=== PATIENT | female | born 1975 | race Caucasian/White ===

== ENCOUNTER 2025-05-09 17:14 | Emergency (ER) | payer OTHER, SELFPAY ==
--- NOTE | ~2025-05-09 | CT_ITS ---
History: Vertigo PROCEDURE: CT head without contrast. COMPARISON: None TECHNIQUE: Axial imaging of the head performed from the skull base to the vertex without IV contrast. Sagittal a nd coronal reformations obtained. DLP: 681 mGy-cm FINDINGS: The ventricles are normal in size, shape and position. There is no mass, mass effect or midline shift. There is no abnormal extra-axial fluid collection or intracranial hemorrhage. Visualized paranasal sinuses are clear. The mastoid air cells are well aerated. No acute displaced fractures within the overlying cranium. Impression: No acute intracranial hemorrhage or suspicious mass effect. Reviewed, dictated and finalized at location A. Impression: No acute intracranial hemorrhage or suspicious mass effect.
[2025-05-09 17:19] VITALS: BP 118/64; PULSE 93; RESP 14; TEMP 36.4; O2SAT 100
--- OUTSIDE RECORDS SUMMARY | 2025-05-09 17:21 | XMS_ITS | Clinical Summary ---
Author Organization [facility] Address [address] [place] [address] Care Team Providers Care Reproductive Endocrinologist Name Role Phone Mamie Winchester PA-C Primary Care Provider [phone] Source Comments [facility],non-owned Affiliates and Associated Physician Practices is amultiple site organization consisting of ambulatory clinics and hospital sitesin [place], [place], [place] and [place]. This disclosure is being madepursuant to the Care Everywhere program and may not contain all information available regarding this patient. Last updated 18.[facility] Allergies No known active allergies Medications * Be aware that medications may not be up to date on this document. Alwaysverify current medications with the patient. vitamin D, ergocalciferol, (DRISDOL) 18788 UNITS capsule Take 1 Cap by mouth every 7 days 4 Cap 2 04/02/2016 Active Active Problems Problem Noted Date Diagnosed Date Right hand pain 12/01/2020 Vitamin D deficiency 04/02/2016 Thyroid nodule-hx of 04/02/2016 Crohn's disease 05/03/2013 Immunizations Immunization Administration Dates Next Due INFLUENZA VACCINE 08/24/2015 INFLUENZA VACCINE, QUADR. (F LUZONE; FLULAVAL; FLUARIX; AFLURIA QUADRIVALENT; 6MO+), 0.5 ML (IIV4) 12/27/2016 Family History Medical History Relation Name Comments Cancer - Other Father Prostate Heart Disease Father Cancer - Other Maternal Grandmother Stroke Paternal Grandfather Relation Name Status Comments Father Maternal Grandmother Paternal Grandfather Social History Tobacco Use Types Packs/Day Years Used Date Smoking Tobacco: Every Day Cigarettes 0.5 16 Smokeless Tobacco: Never Tobacco Cessation:Ready to Q uit: No; Counseling Given: No Alcohol Use Standard Drinks/Week Comments Yes 0 (1 standard drink = 0.6 oz pur e alcohol) occasional Comments No Sex and Gender Information Value Date Recorded Sex Assigned at Not on file Legal Sex Female 6:52 AM PANTOGRAPH ENGRAVER Gender Identity Not on file Sexual Orientation Not on file Last Filed Vital Signs Vital Sign Reading Time Taken Comments Blood Pressure 117/57 11/23/2020 10:57 AM PANTOGRAPH ENGRAVER Pulse 62 11/23/2020 10:57 AM PANTOGRAPH ENGRAVER Temperature 36.9 C (98.5 F) 11/23/2020 9:07 AM PANTOGRAPH ENGRAVER Respiratory Rate 16 11/23/2020 10:57 AM PANTOGRAPH ENGRAVER Oxygen Saturation 99% 11/23/2020 10:57 AM PANTOGRAPH ENGRAVER Inhaled Oxygen Concentration - - Weight 65.8 kg (145 lb) 11/23/2020 9:07 AM PANTOGRAPH ENGRAVER Height 172.7 cm (5' 8) 11/23/2020 9:07 AM PANTOGRAPH ENGRAVER Body Mass Index 22.05 11/23/2020 9:07 AM PANTOGRAPH ENGRAVER Plan of Treatment Health Maintenance Due Date Last Done Comments COLOGUARD (AGES 45-75) - COL ON CA SCREENING 1975 COLON MONITORING 1975 COLONOSCOPY - COLON CA SCREENING 1975 CT COLONOGRAPHY - COLON CA SCREENING 1975 Colorectal Cancer Screening 1975 FIT - COLON CA SCREENING 1975 FLEX SIG - COLON CA SCREENING 1975 LIPID TESTING 1975 MAMMOGRAM 1975 HIV SCREENING 1990 HEPATITIS C SCREENING 04/12/1993 DTAP/TDAP/TD VACCINES (1 - Tdap) 1994 HEPATITIS B VACCINE (1 of 3 - 19+ 3-dose series) 1994 COVID-19 VACCINE ( - 2023-2 5 season) 2024 DEPRESSION SCREENING 11/24/2024 PNEUMOCOCCAL VACCINE 50+ (1 of 1 - PCV) 2025 ZOSTER VACCINE (1 of 2) 2025 INFLUENZA VACCINE (Season Ended) 2025 12/27/2016, 08/24/2015 HIB VACCINE Aged Out No longer eligi ble based on patient's age to complete this topic HPV VACCINE Aged Out No longer eligi ble based on patient's age to complete this topic MENINGOCOCCAL (Group B) VACCINE SHARED DECISION-MAKING Aged Out No longer eligible based on patient's age to complete this topic MENINGOCOCCAL GROUPS A/C/Y/W VACCINE Aged Out No longer eligible b ased on patient's age to complete this topic [place] [address] THIRD [employer]AT LIABILITY TP THIRD [employer] LIABILITY Member Subscriber Plan / Payer (Ef fective 2020-Present) Name:Manny Adams Relation to Subscriber:Self Name:Manny Adams Payer ID:Not on file Group ID:Not on file Type:Third Green Party Liability [id number] Address: [address] [place] [id number] MEDICAID - [place] Care Teams Reproductive Endocrinologist Relationship Specialty Start Date End Date Mamie Winchester PA-C [address] [place] [address] PCP - General Physician 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
[2025-05-09 18:35] VITALS: BP 117/65; PULSE 87; RESP 18; O2SAT 100
[2025-05-09 19:12] VITALS: BP 132/88; PULSE 93; RESP 18; O2SAT 99
--- OUTSIDE RECORDS SUMMARY | 2025-05-09 19:25 | XMS_ITS | Clinical Summary ---
Author Organization [facility] Address [address] [place] [address] Care Team Providers Care Rescue Instructor Name Role Phone Mamie Winchester PA-C Primary Care Provider [phone] Source Comments [facility],non-owned Affiliates and Associated Physician Practices is amultiple site organization consisting of ambulatory clinics and hospital sitesin [place], [place], [place] and [place]. This disclosure is being madepursuant to the Care Everywhere program and may not contain all information available regarding this patient. Last updated 18.[facility] Allergies No known active allergies Medications * Be aware that medications may not be up to date on this document. Alwaysverify current medications with the patient. vitamin D, ergocalciferol, (DRISDOL) 65668 UNITS capsule Take 1 Cap by mouth [...] on file Legal Sex Female 6:52 AM CERTIFIED ORTHOPTIST Gender Identity Not on file Sexual Orientation Not on file Last Filed Vital Signs Vital Sign Reading Time Taken Comments Blood Pressure 117/57 11/23/2020 10:57 AM CERTIFIED ORTHOPTIST Pulse 62 11/23/2020 10:57 AM CERTIFIED ORTHOPTIST Temperature 36.9 C (98.5 F) 11/23/2020 9:07 AM CERTIFIED ORTHOPTIST Respiratory Rate 16 11/23/2020 10:57 AM CERTIFIED ORTHOPTIST Oxygen Saturation 99% 11/23/2020 10:57 AM CERTIFIED ORTHOPTIST Inhaled Oxygen Concentration - - Weight 65.8 kg (145 lb) 11/23/2020 9:07 AM CERTIFIED ORTHOPTIST Height 172.7 cm (5' 8) 11/23/2020 9:07 AM CERTIFIED ORTHOPTIST Body Mass Index 22.05 11/23/2020 9:07 AM CERTIFIED ORTHOPTIST Plan of Treatment Health Maintenance Due Date [...] patient's age to complete this topic Insurance [address] [address] [address] THIRD [employer] LIABILITY TP TH[employer] LIABILITY Member Subscriber Plan / Payer (Ef fective 2020-Present) Name:Manny Adams Relation to Subscriber:Self Name:Manny Adams Payer ID:Not on file Group ID:Not on file Type:Third Green Party Liability [id number] Address: [address] [place] [id number] MEDICAID - [place] Care Teams Rescue Instructor Relationship Specialty Start Date End Date Mamie Winchester PA-C [address] [place] [address] PCP - General Physician Retail Buyer 04/30/13
[2025-05-09 19:39] LABS: Basophils Absolute Auto 0.1 K/mm3 (0.0-0.1); Basophils Percent Auto 0.6 % (0.2-1.2); Eosinophils Absolute Auto 0.1 K/mm3 (0-0.3); Eosinophils Percent Auto 0.8 % (0-4.4); Hematocrit 43.4 % (37.0-47.0); Hemoglobin 14.6 g/dL (12.0-15.0); Immature Granulocyte Absolute 0.05 K/mm3 (0.00-0.031); Immature Granulocyte Percent A 0.5 % (0-0.5); Lymphocytes Absolute Auto 2.63 K/mm3 (0.9-3.2); Lymphocytes Percent Auto 25.3 % (18.3-44.2); Mean Corpuscular HGB Conc 33.6 g/dl (32-36); Mean Corpuscular Hemoglobin 30.7 pg (26-34); Mean Corpuscular Volume 91.4 fl (80-100); Mean Platelet Volume 9.1 fl (7.4-10.4); Monocytes Absolute Auto 0.9 K/mm3 (0.1-0.6); Monocytes Percent Auto 8.2 % (2.6-8.5); Neutrophils Absolute Auto 6.7 K/mm3 (1.3-6.7); Neutrophils Percent Auto 64.6 % (45.5-73.1); Platelet Count Result 293 k/mm3 (150-375); Red Blood Count 4.75 M/mm3 (4.2-5.4); Red Cell Distribution Width 12.4 % (11.5-14.5); White Blood Count 10.4 K/mm3 (4.5-10.0)
[2025-05-09] MEDS: MECLIZINE HCL 25 MG TABLET PO (19:39)
[2025-05-09 19:46] VITALS: BP 135/84; PULSE 82; O2SAT 100
[2025-05-09 19:56] LABS: Alanine Aminotransferase 43 U/L (6-35); Albumin Level 4.2 g/dL (3.5-5.1); Alkaline Phosphatase 77 U/L (38-126); Anion Gap 6 mmol/L (4-12); Aspartate Amino Transferase 33 U/L (14-36); Bilirubin,Total 0.6 mg/dL (0.2-1.3); Blood Urea Nitrogen 19 mg/dL (7-17); CRP < 0.5 mg/dL (<1.0); Calcium 9.1 mg/dL (8.4-10.2); Carbon Dioxide 24 mmol/L (22-30); Chloride 108 mmol/L (98-107); Estimated CRCL calculation 61 ml/min; Estimated Glomerular Filt Rate > 60; Glucose 96 mg/dL (65-110); Potassium 3.9 mmol/L (3.4-5.0); Sodium 138 mmol/L (137-145)
[2025-05-09 20:06] LABS: Erythrocyte Sedimentation Rate 8 mm/hr (0-20)
--- NOTE | 2025-05-09 20:07 | ED.DIZZY ---
HPI - Dizziness General Chief Complaint: Dizziness Stated Complaint: dizzy Time Seen by Provider: 05/09/25 19:02 History of Present Illness HPI Narrative: Patient reports feeling dizzy, she states that she has been having a sensation of fluid moving around the right side of her head going to the top of her head, initially she told me that this started just today, vision changes, then she told me that and has actually been going on for 8 months, she has gone to 3-4 different hospitals, in the last few weeks, and has had multiple prior CTs. She is still insisting on a CT here. Does have history of Crohn's and thyroid issues Related Data Allergies Allergy/AdvReac Type Severity Reaction Status Date / Time No Known Allergies Allergy Verified 05/09/25 18:38 Review of Systems Review of Systems: All systems reviewed & are unremarkable except as noted in HPI and below [facility] Family History Family History (Updated 04/23/16 @ 08:53 by DOCTOR UNKNOWN) Other Cerebrovascular accident Malignant neoplasm of prostate Social History Social History Smoking status: Heavy tobacco smoker Alcohol intake: never Exam Narrative: EXAMINATION OF ORGAN SYSTEMS/BODY AREAS: Constitutional: Vital signs per nursing GENERAL: Appears anxious and restless HEAD: Normal with no signs of head trauma. Normal palpable temporal pulses. EYES: EOMI, conjunctiva normal, PERRL ENT: Normal dentition. Normal TMs. No mastoid tenderness. LUNGS: Nonlabored breathing. HEART: [Regular rate and rhythm] ABD: [Soft], [nontender to palpation] EXT: Normal range of motion SKIN: [No rashes or lesions.] NEURO: [Alert and oriented x 3. No gross focal sensory or strength deficits.] PSYCH: Anxious affect Course Vital Signs Vital signs: Vital Signs Temperature 97.6 F 05/09/25 17:19 Pulse Rate 93 05/09/25 17:19 Respiratory Rate 14 05/09/25 17:19 Blood Pressure 118/64 05/09/25 17:19 Pulse Oximetry 100 05/09/25 17:19 Oxygen Delivery Room Air 05/09/25 17:19 Temperature 97.6 F 05/09/25 17:19 Pulse Rate 82 05/09/25 19:46 Respiratory Rate 18 05/09/25 19:12 Blood Pressure 135/84 05/09/25 19:46 Pulse Oximetry 100 05/09/25 19:46 Oxygen Delivery Room Air 05/09/25 18:35 MDM - Dizziness MDM Narrative Medical decision making narrative: Patient presents here insisting on a scan of her head, reporting that she has had sensation of fluid moving around in the right side of her head, she changes her story repeatedly, eventually has told me that she has been to multiple different hospitals and gotten scans already but nobody has told her what is on the scans other than that everything was normal. She is insisting on a CT brain today. I did consider potential temporal arteritis however she has very good palpable normal pulse temporal artery, ESR/CRP here are both normal, when I went back into the room to discuss these findings with her as well as abnormal CT brain, she had already left, I did try calling the phone number to discuss her findings with her however her phone is restricted and I cannot dial through. Lab Data 05/09/25 19:31 05/09/25 19:31 Labs: Lab Results 05/09/25 05/09/25 Range/Units 19:31 20:00 WBC 10.4 H (4.5-10.0) K/mm3 RBC 4.75 (4.2-5.4) M/mm3 Hgb 14.6 (12.0-15.0) g/dL Hct 43.4 (37.0-47.0) % MCV 91.4 (80-100) fl MCH 30.7 (26-34) pg MCHC 33.6 (32-36) g/dl RDW 12.4 (11.5-14.5) % Plt Count 293 (150-375) k/mm3 MPV 9.1 (7.4-10.4) fl Immature Gran % (Auto) 0.5 (0-0.5) % Neut % (Auto) 64.6 (45.5-73.1) % Lymph % (Auto) 25.3 (18.3-44.2) % [place] % (Auto) 8.2 (2.6-8.5) % Eos % (Auto) 0.8 (0-4.4) % Baso % (Auto) 0.6 (0.2-1.2) % Lymph # (Auto) 2.63 (0.9-3.2) K/mm3 [place] # (Auto) 0.9 H (0.1-0.6) K/mm3 Eos # (Auto) 0.1 (0-0.3) K/mm3 Baso # (Auto) 0.1 (0.0-0.1) K/mm3 Abs Immat Gran (auto) 0.05 H (0.00-0.031) K/mm3 Absolute Neuts (auto) 6.7 (1.3-6.7) K/mm3 Absolute Nucleated RBC 0.000 (0.0-0.012) K/mm3 Nucleated RBC % 0.0 (0.0-0.2) % ESR 8 (0-20) mm/hr Sodium 138 (137-145) mmol/L Potassium 3.9 (3.4-5.0) mmol/L Chloride 108 H (98-107) mmol/L Carbon Dioxide 24 (22-30) mmol/L Anion Gap 6 (4-12) mmol/L BUN 19 H (7-17) mg/dL Creatinine 0.89 (0.7-1.0) mg/dL Estim Creat Clear Calc 61 ml/min Estimated GFR > 60 (59 - ) Glucose 96 (65-110) mg/dL Calcium 9.1 (8.4-10.2) mg/dL Total Bilirubin 0.6 (0.2-1.3) mg/dL AST 33 (14-36) U/L ALT 43 H (6-35) U/L Alkaline Phosphatase 77 (38-126) U/L C-Reactive Protein < 0.5 (<1.0) mg/dL Total Protein 7.0 (6.3-8.2) g/dL Albumin 4.2 (3.5-5.1) g/dL Urine Opiates Screen Negative (Negative) Urine Methadone Screen Negative (Negative) Ur Barbiturates Screen Negative (Negative) Ur Phencyclidine Scrn Negative (Negative) Ur Amphetamine Screen Pending U Benzodiazepines Scrn Negative (Negative) Urine Cocaine Screen Negative (Negative) U Cannabinoids Screen Negative (Negative) Discharge Plan Discharge Clinical Impression: Vertigo Patient Disposition: Home Condition: Stable Instructions: Vertigo (ED) Additional Instructions: Your CT brain today did not show any obvious abnormality. Please follow-up with your primary care doctor and a neurologist and you can always return to the emergency room for any further issues. Patient Language: Bahraini Follow-up/Referrals: PHYSICIAN NOT ON STAFF,NONSTAFF [Primary Care Provider] -
[2025-05-09 20:33] LABS: Barbiturate Screen Urine Negative (Negative); Benzodiazepines Screen Urine Negative (Negative); Cannabinoid Screen Urine Negative (Negative); Cocaine Screen Urine Negative (Negative); Methadone Screen Urine Negative (Negative); Opiate Screen Urine Negative (Negative); Phencyclidine Screen Urine Negative (Negative)
[2025-05-09 21:50] LABS: Amphetamine Screen Urine Positive (Negative)
== END 2025-05-09 20:55 | disposition home or self-care (01) ==
PROVIDERS: Emergency Provider Emergency Medicine
DX: R42 Dizziness and giddiness (principal); K50.90 Crohn's disease, unspecified, without complications
CPT/HCPCS: 36415; 70450; 80053; 80307; 85025; 85652; 86140; 99284; A9270